=== PATIENT | female | born 1985 | race Caucasian/White ===

== ENCOUNTER 2019-07-09 09:41 | Emergency (ER) | payer MEDICAID ==
[~2019-07-09] VITALS: Ht 165.1 cm; Wt 75.0 kg
[~2019-07-09 09:41] MED LIST: BENZ-38 PO; LEVA15HF4 IH; PRED20TA PO; PSEU-225 PO; ROBCFL PO
== END 2019-07-09 10:43 | disposition home or self-care (01) ==
LOC: ER 09:42 → MERGE 09:42 → ER 10:43
DX: J06.9 Acute upper respiratory infection, unspecified (principal); F17.200 Nicotine dependence, unspecified, uncomplicated
CPT/HCPCS: 99281

== ENCOUNTER 2019-07-12 09:27 | Emergency (ER) | payer MEDICAID ==
[~2019-07-12] VITALS: Ht 165.1 cm; Wt 56.0 kg
[2019-07-12] MEDS ORDERED: ondansetron 4mg rapidly disintigrating tab PO ONE (11:35)
[2019-07-12] MEDS ORDERED: dexamethasone sod phosphate 10mg/ml inj PO STA (11:35)
[2019-07-12] MEDS ORDERED: normal saline 1000ML IV soln IVB ONE (11:45)
--- NOTE | 2019-07-12 13:38 | NUR ---
PT GIVEN SANDWICH BAGS FOR HER AND CHILD.
[2019-07-12 13:40] VITALS: BP 106/47
[2019-07-12 13:46] LABS: URINE AMPHETAMINE SCREEN NEGATIVE (Neg); URINE BARBITUATE SCREEN NEGATIVE (Neg); URINE BENZODIAZEPINES SCREEN NEGATIVE (Neg); URINE CANNABINOID SCREEN NEGATIVE (Neg); URINE COCAINE SCREEN NEGATIVE (Neg); URINE METHADONE SCREEN NEGATIVE (Neg); URINE OPIATE SCREEN NEGATIVE (Neg); URINE PHENCYCLIDINE SCREEN NEGATIVE (Neg)
[2019-07-12] MEDS ORDERED: PENI500T2 PO (14:00)
== END 2019-07-12 14:12 | disposition home or self-care (01) ==
LOC: MERGE 09:27 → ER 09:27
DX: J02.0 Streptococcal pharyngitis (principal); R59.0 Localized enlarged lymph nodes; Z88.0 Allergy status to penicillin
CPT/HCPCS: 80305; 87880; 99283; J1100; J7030

== ENCOUNTER 2019-08-25 14:05 | Emergency (ER) | payer MEDICAID ==
[~2019-08-25] VITALS: Ht 165.1 cm; Wt 56.0 kg
[2019-08-25] MEDS ORDERED: CefTRIAXone 2gm/D5W 50ml 50 ML IV ONE (15:25)
[2019-08-25] MEDS ORDERED: ringers solution, lacted 1,000 ML IV ONE (15:25)
[2019-08-25 15:34] LABS: URINE HCG NEGATIVE (NEG)
[2019-08-25 15:39] LABS: CLARITY,URINE SLIGHTLY CLOUDY (Clear); COLOR,URINE YELLOW (Yellow); GLUCOSE, URINE NEGATIVE (Neg); KETONES,URINE NEGATIVE (Neg); LEUKOCYTE ESTERASE ,URINE LARGE (Neg); NITRITES, URINE NEGATIVE (Neg); OCCULT BLOOD,URINE MODERATE (Neg); PROTEIN,URINE NEGATIVE (Neg); UROBILINOGEN,URINE 0.2 E.U/dL (0.2-1.0)
[2019-08-25 15:44] LABS: UA COLLECTION TYPE CLN CATCH MIDSTREAM
[2019-08-25 15:48] LABS: BACTERIA,URINE 3+ /HPF (Neg); MUCUS STRANDS NONE SEEN /LPF (Neg); SQUAMOUS EPITHELIAL CELL,UR FEW /LPF (FEW); WBC,URINE TNTC /HPF (0-4)
[2019-08-25 15:49] LABS: WBC CLUMPS,URINE MODERATE /HPF (NEGATIVE)
[2019-08-25 16:12] VITALS: BP 125/99
[2019-08-25] MEDS ORDERED: CEPH-572 PO ×2 (16:22→16:27)
== END 2019-08-25 17:01 | disposition home or self-care (01) ==
LOC: ER 14:06
DX: N12 Tubulo-interstitial nephritis, not specified as acute or chronic (principal); F17.200 Nicotine dependence, unspecified, uncomplicated; Z88.6 Allergy status to analgesic agent; Z79.899 Other long term (current) drug therapy; Z79.2 Long term (current) use of antibiotics; Z87.440 Personal history of urinary (tract) infections; Z59.0 Homelessness; Z56.0 Unemployment, unspecified
CPT/HCPCS: 81001; 81025; 87077; 87088; 87186; 96365; 99283; J0696; J7120

== ENCOUNTER 2019-09-21 10:31 | Emergency (ER) | payer MEDICAID ==
[~2019-09-21] VITALS: Ht 165.1 cm; Wt 57.0 kg
[2019-09-21] MEDS ORDERED: acetaminophen 325mg tablet PO ONE (11:15)
[2019-09-21 11:22] LABS: CLARITY,URINE SLIGHTLY CLOUDY (Clear); COLOR,URINE YELLOW (Yellow); GLUCOSE, URINE NEGATIVE (Neg); KETONES,URINE NEGATIVE (Neg); LEUKOCYTE ESTERASE ,URINE TRACE (Neg); NITRITES, URINE NEGATIVE (Neg); OCCULT BLOOD,URINE LARGE (Neg); PROTEIN,URINE TRACE mg/dl (Neg); URINE HCG NEGATIVE (NEG); UROBILINOGEN,URINE 0.2 E.U/dL (0.2-1.0)
[2019-09-21 11:30] LABS: UA COLLECTION TYPE CLN CATCH MIDSTREAM
[2019-09-21 11:32] LABS: BASOPHILS # (AUTO) 0.1 X10'3 (0-0.2); BASOPHILS % (AUTO) 0.7 % (0-1); EOSINOPHILS # (AUTO) 0.3 X10'3 (0-0.9); EOSINOPHILS % (AUTO) 2.9 % (0-6); HEMATOCRIT 38.4 % (35.0-45.0); HEMOGLOBIN 13.3 g/dl (12.0-16.0); LYMPHOCYTES # (AUTO) 1.3 X10'3 (1.1-4.8); LYMPHOCYTES % (AUTO) 15.4 % (21-51); MEAN CORPUSCULAR HEMOGLOBIN 31.2 PG (27.0-31.0); MEAN CORPUSCULAR HGB CONC 34.7 g/dL (33.0-36.5); MEAN CORPUSCULAR VOLUME 90.1 FL (78-98); MEAN PLATELET VOLUME 7.7 FL (7.4-10.4); MONOCYTES # (AUTO) 0.3 X10'3 (0-0.9); NEUTROPHILS # (AUTO) 6.7 X10'3 (1.8-7.7); PLATELET COUNT 349 X10'3 (140-440); RED BLOOD COUNT 4.26 X10'6 (4.20-5.60); RED CELL DISTRIBUTION WIDTH 14.2 % (11.5-14.5); WHITE BLOOD COUNT 8.7 X10'3 (4.5-11.0)
[2019-09-21 11:42] LABS: SQUAMOUS EPITHELIAL CELL,UR MANY /LPF (FEW)
[2019-09-21 11:43] LABS: RBC,URINE TNTC /HPF (0-2)
[2019-09-21 11:44] LABS: ALANINE AMINOTRANSFERASE 13 U/L (12-78); ALBUMIN 3.5 G/DL (3.4-5.0); ALBUMIN/GLOBULIN RATIO 0.9 (1.1-1.5); ALKALINE PHOSPHATASE 78 IU/L (46-116); ANION GAP 9 (8-16); ASPARTATE AMINO TRANSFERASE 12 U/L (10-37); BILIRUBIN,TOTAL 0.3 MG/DL (0.1-1.0); BLOOD UREA NITROGEN 4 MG/DL (7-18); BUN/CREATININE RATIO 6.3 (6.6-38.0); CALCIUM 8.3 MG/DL (8.5-10.1); CHLORIDE 102 MMOL/L (99-107); CREATININE 0.64 MG/DL (0.40-0.90); GLUCOSE 126 MG/DL (70-104); LIPASE 125 U/L (73-393); SODIUM 139 MMOL/L (135-145); TOTAL CARBON DIOXIDE 28.3 MMOL/L (24-32); TOTAL PROTEIN 7.3 G/DL (6.4-8.2); eGFR > 90 ML/MIN
[2019-09-21 11:45] LABS: BACTERIA,URINE 1+ /HPF (Neg); WBC,URINE 0-4 /HPF (0-4)
[2019-09-21] MEDS ORDERED: potassium Cl 20 mEq SR tablet PO STA (12:07)
[2019-09-21 12:13] VITALS: BP 118/70
== END 2019-09-21 12:21 | disposition home or self-care (01) ==
LOC: ER 10:32
DX: M54.6 Pain in thoracic spine (principal); E87.6 Hypokalemia; F17.210 Nicotine dependence, cigarettes, uncomplicated; Z59.0 Homelessness; Z56.0 Unemployment, unspecified; Z88.5 Allergy status to narcotic agent; Z79.899 Other long term (current) drug therapy
CPT/HCPCS: 36415; 80053; 81001; 81025; 83690; 85025; 99283; 99406

== ENCOUNTER 2019-10-09 08:27 | Emergency (ER) | payer MEDICAID ==
[~2019-10-09] VITALS: Ht 165.1 cm; Wt 58.0 kg
[2019-10-09 08:29] VITALS: BP 125/60
== END 2019-10-09 09:46 | disposition home or self-care (01) ==
LOC: ER 08:28
DX: S50.312A Abrasion of left elbow, initial encounter (principal); M25.512 Pain in left shoulder; Z59.0 Homelessness; Z56.0 Unemployment, unspecified; Z88.5 Allergy status to narcotic agent; Z79.899 Other long term (current) drug therapy; W01.0XXA Fall on same level from slipping, tripping and stumbling without subsequent striking against object, initial encounter; Y93.89 Activity, other specified; Y92.89 Other specified places as the place of occurrence of the external cause; Y99.8 Other external cause status
CPT/HCPCS: 73080; 99284

== ENCOUNTER 2019-10-25 16:53 | Emergency (ER) | payer MEDICAID ==
[~2019-10-25] VITALS: Ht 165.1 cm; Wt 58.7 kg
[2019-10-25 17:07] VITALS: BP 112/65
[2019-10-25] MEDS ORDERED: NAPR-56 PO (19:29)
== END 2019-10-25 20:58 | disposition home or self-care (01) ==
LOC: ER 16:57
DX: M94.0 Chondrocostal junction syndrome [Tietze] (principal); R05 Cough; F17.210 Nicotine dependence, cigarettes, uncomplicated; Z59.0 Homelessness; Z56.0 Unemployment, unspecified; Z88.5 Allergy status to narcotic agent; Z79.899 Other long term (current) drug therapy
CPT/HCPCS: 71046; 99283

== ENCOUNTER 2019-11-01 21:10 | Emergency (ER) | payer MEDICAID ==
[~2019-11-01] VITALS: Ht 165.1 cm; Wt 57.8 kg
[~2019-11-01 21:10] MED LIST changes: +NAPR-56 PO
[2019-11-01] MEDS ORDERED: ALBU8.5H8 IH (21:48)
[2019-11-01] MEDS ORDERED: BENZ-16 PO (21:48)
[2019-11-01 22:42] VITALS: BP 121/48
== END 2019-11-01 22:47 | disposition home or self-care (01) ==
LOC: ER 21:10
DX: R05 Cough (principal); F17.200 Nicotine dependence, unspecified, uncomplicated; Z59.0 Homelessness; Z56.0 Unemployment, unspecified; Z88.5 Allergy status to narcotic agent; Z79.899 Other long term (current) drug therapy
CPT/HCPCS: 99283

== ENCOUNTER 2019-11-19 10:46 | Emergency (ER) | payer MEDICAID ==
[~2019-11-19] VITALS: Ht 167.6 cm; Wt 60.0 kg
[~2019-11-19 10:46] MED LIST changes: +ALBU8.5H8 IH; +BENZ-16 PO
[2019-11-19] MEDS ORDERED: ketorolac trometh. 30mg/ml inj. IM ONE (11:20)
[2019-11-19] MEDS ORDERED: normal saline 1000ML IV soln IVB ONE (11:20)
[2019-11-19] MEDS ORDERED: morphine 4 MG/ML inj SYRINge IV ONE (11:25)
[2019-11-19 11:50] LABS: EOSINOPHILS # (AUTO) 0.4 X10'3 (0-0.9)
[2019-11-19 11:52] LABS: BASOPHILS # (AUTO) 0.1 X10'3 (0-0.2); BASOPHILS % (AUTO) 1.6 % (0-1); EOSINOPHILS % (AUTO) 4.1 % (0-6); HEMOGLOBIN 12.8 g/dl (12.0-16.0); LYMPHOCYTES % (AUTO) 22.6 % (21-51); MEAN CORPUSCULAR HEMOGLOBIN 29.3 PG (27.0-31.0); MEAN CORPUSCULAR HGB CONC 33.8 g/dL (33.0-36.5); MEAN CORPUSCULAR VOLUME 86.7 FL (78-98); MEAN PLATELET VOLUME 7.3 FL (7.4-10.4); MONOCYTES # (AUTO) 0.5 X10'3 (0-0.9); MONOCYTES % (AUTO) 5.8 % (2-12); NEUTROPHILS % (AUTO) 65.9 % (42-75); PLATELET COUNT 464 X10'3 (140-440); RED BLOOD COUNT 4.38 X10'6 (4.20-5.60)
[2019-11-19 12:11] LABS: ALANINE AMINOTRANSFERASE 15 U/L (12-78); ALBUMIN 3.7 G/DL (3.4-5.0); ALBUMIN/GLOBULIN RATIO 1.1 (1.1-1.5); ALKALINE PHOSPHATASE 78 IU/L (46-116); ANION GAP 6 (8-16); ASPARTATE AMINO TRANSFERASE 11 U/L (10-37); BILIRUBIN,TOTAL 0.2 MG/DL (0.1-1.0); BLOOD UREA NITROGEN 4 MG/DL (7-18); BUN/CREATININE RATIO 7.4 (6.6-38.0); CALCIUM 8.3 MG/DL (8.5-10.1); CHLORIDE 102 MMOL/L (99-107); CREATININE 0.54 MG/DL (0.40-0.90); GLUCOSE 60 MG/DL (70-104); POTASSIUM 3.3 MMOL/L (3.5-5.1); SODIUM 137 MMOL/L (135-145); TOTAL CARBON DIOXIDE 28.6 MMOL/L (24-32); TOTAL PROTEIN 7.2 G/DL (6.4-8.2); eGFR > 90 ML/MIN
[2019-11-19 12:14] LABS: URINE HCG NEGATIVE (NEG)
[2019-11-19 12:15] LABS: LIPASE 1560 U/L (73-393)
[2019-11-19 12:15] LABS: CLARITY,URINE SLIGHTLY CLOUDY (Clear); COLOR,URINE STRAW (Yellow); GLUCOSE, URINE NEGATIVE (Neg); KETONES,URINE NEGATIVE (Neg); LEUKOCYTE ESTERASE ,URINE NEGATIVE (Neg); NITRITES, URINE NEGATIVE (Neg); OCCULT BLOOD,URINE NEGATIVE (Neg); PH,URINE 5.5 (4.8-8.0); PROTEIN,URINE NEGATIVE (Neg); UROBILINOGEN,URINE 0.2 E.U/dL (0.2-1.0)
[2019-11-19 12:18] LABS: UA COLLECTION TYPE CLN CATCH MIDSTREAM
[2019-11-19 12:20] LABS: SQUAMOUS EPITHELIAL CELL,UR MODERATE /LPF (FEW)
[2019-11-19 12:21] LABS: BACTERIA,URINE FEW /HPF (Neg); RBC,URINE 0-2 /HPF (0-2); WBC,URINE 0-4 /HPF (0-4)
[2019-11-19] MEDS ORDERED: potassium Cl 20 mEq SR tablet PO ONE (12:25)
[2019-11-19 12:39] LABS: CHOL/HDL RATIO 2.8 (0.00-4.99); CHOLESTEROL 150 MG/DL (0-200); HDL CHOLESTEROL 53 MG/DL (35-60); LDL CHOLESTEROL 81 MG/DL (50-100); TRIGLYCERIDES 82 MG/DL (20-135)
[2019-11-19] MEDS ORDERED: proCHLORperazine 10 MG/2 ml inj IV ONE (13:05)
[2019-11-19] MEDS ORDERED: ONDA8TAB13 PO (13:10)
[2019-11-19 13:25] VITALS: BP 108/66
[2019-11-21] MEDS ORDERED: ONDA4TAB12 PO (22:48)
[2019-11-21] MEDS ORDERED: HYDR-3965 PO (22:48)
== END 2019-11-19 13:27 | disposition home or self-care (01) ==
LOC: ER 10:47
DX: K85.90 Acute pancreatitis without necrosis or infection, unspecified (principal); F17.200 Nicotine dependence, unspecified, uncomplicated; Z59.0 Homelessness; Z56.0 Unemployment, unspecified; Z88.5 Allergy status to narcotic agent; Z79.899 Other long term (current) drug therapy
CPT/HCPCS: 36415; 76700; 80053; 80061; 81001; 81025; 83690; 85025; 96372; 96374; 96375; 99284; J0780; J1885; J2270; J7030

== ENCOUNTER 2019-11-29 06:24 | Emergency (ER) | payer MEDICAID ==
[~2019-11-29] VITALS: Ht 165.1 cm; Wt 55.5 kg
[~2019-11-29 06:24] MED LIST changes: +HYDR-3965 PO; -NAPR-56 PO; +ONDA4TAB12 PO; +ONDA8TAB13 PO
[2019-11-29 06:30] VITALS: BP 114/59
[2019-11-29] MEDS ORDERED: CefTRIAXone 250MG IM Kit w/LIDOcaine IM ONE (06:50)
[2019-11-29] MEDS ORDERED: azithromycin 250mg tablet PO ONE (06:50)
[2019-11-29 08:02] LABS: BASOPHILS % (AUTO) 0.5 % (0-1); EOSINOPHILS # (AUTO) 0.3 X10'3 (0-0.9); EOSINOPHILS % (AUTO) 3.7 % (0-6); HEMATOCRIT 39.2 % (35.0-45.0); HEMOGLOBIN 13.1 g/dl (12.0-16.0); LYMPHOCYTES # (AUTO) 1.6 X10'3 (1.1-4.8); LYMPHOCYTES % (AUTO) 19.1 % (21-51); MEAN CORPUSCULAR HEMOGLOBIN 28.8 PG (27.0-31.0); MEAN CORPUSCULAR HGB CONC 33.4 g/dL (33.0-36.5); MEAN CORPUSCULAR VOLUME 86.4 FL (78-98); MEAN PLATELET VOLUME 7.4 FL (7.4-10.4); MONOCYTES # (AUTO) 0.6 X10'3 (0-0.9); MONOCYTES % (AUTO) 6.6 % (2-12); NEUTROPHILS % (AUTO) 70.1 % (42-75); PLATELET COUNT 407 X10'3 (140-440); RED BLOOD COUNT 4.54 X10'6 (4.20-5.60); RED CELL DISTRIBUTION WIDTH 15.9 % (11.5-14.5); WHITE BLOOD COUNT 8.6 X10'3 (4.5-11.0)
[2019-11-29 08:13] LABS: CLARITY,URINE CLEAR (Clear); COLOR,URINE STRAW (Yellow); GLUCOSE, URINE NEGATIVE (Neg); KETONES,URINE NEGATIVE (Neg); LEUKOCYTE ESTERASE ,URINE NEGATIVE (Neg); NITRITES, URINE NEGATIVE (Neg); OCCULT BLOOD,URINE TRACE-INTACT (Neg); PROTEIN,URINE 100 mg/dl (Neg); URINE HCG NEGATIVE (NEG); UROBILINOGEN,URINE 0.2 E.U/dL (0.2-1.0)
[2019-11-29 08:20] LABS: ALANINE AMINOTRANSFERASE 15 U/L (12-78); ALBUMIN 3.5 G/DL (3.4-5.0); ALKALINE PHOSPHATASE 74 IU/L (46-116); ANION GAP 4 (8-16); ASPARTATE AMINO TRANSFERASE 13 U/L (10-37); BILIRUBIN,TOTAL 0.3 MG/DL (0.1-1.0); BLOOD UREA NITROGEN 5 MG/DL (7-18); BUN/CREATININE RATIO 8.6 (6.6-38.0); CALCIUM 8.5 MG/DL (8.5-10.1); CHLORIDE 105 MMOL/L (99-107); CREATININE 0.58 MG/DL (0.40-0.90); GLUCOSE 82 MG/DL (70-104); LIPASE 217 U/L (73-393); POTASSIUM 3.8 MMOL/L (3.5-5.1); SODIUM 139 MMOL/L (135-145); TOTAL CARBON DIOXIDE 29.7 MMOL/L (24-32); eGFR > 90 ML/MIN
[2019-11-29 08:21] LABS: UA COLLECTION TYPE VOIDED
[2019-11-29 08:22] LABS: BACTERIA,URINE FEW /HPF (Neg); MUCUS STRANDS NONE SEEN /LPF (Neg); RBC,URINE 0-2 /HPF (0-2); SQUAMOUS EPITHELIAL CELL,UR FEW /LPF (FEW); WBC,URINE 0-4 /HPF (0-4)
== END 2019-11-29 09:56 | disposition home or self-care (01) ==
LOC: ER 06:24
DX: R10.84 Generalized abdominal pain (principal); R19.7 Diarrhea, unspecified; R11.10 Vomiting, unspecified; Z20.2 Contact with and (suspected) exposure to infections with a predominantly sexual mode of transmission; Z59.0 Homelessness; Z56.0 Unemployment, unspecified; Z88.5 Allergy status to narcotic agent; Z79.899 Other long term (current) drug therapy
CPT/HCPCS: 36415; 80053; 81001; 81025; 83690; 85025; 87491; 87591; 96372; 99283; J0696

== ENCOUNTER 2019-12-13 12:59 | Emergency (ER) | payer MEDICAID ==
[~2019-12-13] VITALS: Ht 165.1 cm; Wt 57.0 kg
[~2019-12-13 12:59] MED LIST changes: -BENZ-16 PO
[2019-12-13 13:43] LABS: CLARITY,URINE CLEAR (Clear); COLOR,URINE STRAW (Yellow); GLUCOSE, URINE NEGATIVE (Neg); KETONES,URINE NEGATIVE (Neg); LEUKOCYTE ESTERASE ,URINE NEGATIVE (Neg); NITRITES, URINE NEGATIVE (Neg); OCCULT BLOOD,URINE NEGATIVE (Neg); PH,URINE 5.5 (4.8-8.0); PROTEIN,URINE NEGATIVE (Neg); UROBILINOGEN,URINE 0.2 E.U/dL (0.2-1.0)
[2019-12-13 13:44] LABS: UA COLLECTION TYPE CLN CATCH MIDSTREAM; URINE HCG NEGATIVE (NEG)
[2019-12-13 13:45] LABS: BASOPHILS # (AUTO) 0.1 X10'3 (0-0.2); BASOPHILS % (AUTO) 0.6 % (0-1); EOSINOPHILS # (AUTO) 0.3 X10'3 (0-0.9); EOSINOPHILS % (AUTO) 2.6 % (0-6); HEMATOCRIT 40.9 % (35.0-45.0); HEMOGLOBIN 13.6 g/dl (12.0-16.0); LYMPHOCYTES # (AUTO) 2.4 X10'3 (1.1-4.8); LYMPHOCYTES % (AUTO) 21.2 % (21-51); MEAN CORPUSCULAR HEMOGLOBIN 28.8 PG (27.0-31.0); MEAN CORPUSCULAR HGB CONC 33.1 g/dL (33.0-36.5); MEAN CORPUSCULAR VOLUME 86.8 FL (78-98); MEAN PLATELET VOLUME 7.4 FL (7.4-10.4); MONOCYTES # (AUTO) 0.5 X10'3 (0-0.9); MONOCYTES % (AUTO) 3.9 % (2-12); NEUTROPHILS # (AUTO) 8.2 X10'3 (1.8-7.7); NEUTROPHILS % (AUTO) 71.7 % (42-75); PLATELET COUNT 395 X10'3 (140-440); RED BLOOD COUNT 4.71 X10'6 (4.20-5.60); RED CELL DISTRIBUTION WIDTH 16.8 % (11.5-14.5); WHITE BLOOD COUNT 11.4 X10'3 (4.5-11.0)
[2019-12-13] MEDS ORDERED: HYDROcodone/acetaminophen 5mg/325mg tablet PO ONE (13:50)
[2019-12-13] MEDS ORDERED: ondansetron 4mg rapidly disintigrating tab PO ONE (13:50)
[2019-12-13 14:02] LABS: ALANINE AMINOTRANSFERASE 13 U/L (12-78); ALBUMIN 3.8 G/DL (3.4-5.0); ALBUMIN/GLOBULIN RATIO 1.1 (1.1-1.5); ALKALINE PHOSPHATASE 70 IU/L (46-116); AMYLASE 42 U/L (25-115); ANION GAP 9 (8-16); ASPARTATE AMINO TRANSFERASE 14 U/L (10-37); BILIRUBIN,TOTAL 0.3 MG/DL (0.1-1.0); BLOOD UREA NITROGEN 9 MG/DL (7-18); BUN/CREATININE RATIO 13.8 (6.6-38.0); CALCIUM 8.7 MG/DL (8.5-10.1); CHLORIDE 101 MMOL/L (99-107); CREATININE 0.65 MG/DL (0.40-0.90); GLUCOSE 81 MG/DL (70-104); LIPASE 145 U/L (73-393); POTASSIUM 3.4 MMOL/L (3.5-5.1); SODIUM 137 MMOL/L (135-145); TOTAL CARBON DIOXIDE 27.4 MMOL/L (24-32); TOTAL PROTEIN 7.3 G/DL (6.4-8.2); eGFR > 90 ML/MIN
[2019-12-13 14:38] LABS: HCG SERUM QL NEGATIVE
[2019-12-13 15:35] VITALS: BP 112/48
[2019-12-14] MEDS ORDERED: IBUP-1985 PO (22:09)
== END 2019-12-13 15:40 | disposition home or self-care (01) ==
LOC: ER 12:59
DX: N83.201 Unspecified ovarian cyst, right side (principal); Z59.0 Homelessness; Z56.0 Unemployment, unspecified; Z88.0 Allergy status to penicillin; Z79.899 Other long term (current) drug therapy
CPT/HCPCS: 36415; 74176; 76830; 76856; 80053; 81003; 81025; 82150; 83690; 84703; 85025; 99285

== ENCOUNTER 2019-12-14 21:34 | Emergency (ER) | payer MEDICAID ==
[~2019-12-14] VITALS: Ht 165.1 cm; Wt 56.0 kg
[2019-12-14] MEDS ORDERED: ibuprofen tablet 400 MG TABLET PO ONE (22:00)
[2019-12-14] MEDS ORDERED: IBUP-1985 PO (22:09)
[2019-12-14 22:14] VITALS: BP 121/66
== END 2019-12-14 22:15 | disposition home or self-care (01) ==
LOC: ER 21:36
DX: R10.30 Lower abdominal pain, unspecified (principal); Z59.0 Homelessness; Z56.0 Unemployment, unspecified; Z87.440 Personal history of urinary (tract) infections; Z79.899 Other long term (current) drug therapy; Z88.5 Allergy status to narcotic agent
CPT/HCPCS: 99282

== ENCOUNTER 2019-12-24 23:59 | Emergency (ER) | payer MEDICAID ==
[~2019-12-24] VITALS: Ht 165.1 cm; Wt 56.8 kg
[~2019-12-24 23:59] MED LIST changes: -HYDR-3965 PO; +IBUP-1985 PO
[2019-12-25] MEDS ORDERED: ketorolac tromethamine 15mg/ml inj. IM ONE (00:55)
[2019-12-25 01:25] VITALS: BP 126/85
== END 2019-12-25 01:26 | disposition home or self-care (01) ==
LOC: ER 12-25
DX: G89.29 Other chronic pain (principal); M25.551 Pain in right hip; Z59.0 Homelessness; Z56.0 Unemployment, unspecified; Z88.5 Allergy status to narcotic agent; Z79.899 Other long term (current) drug therapy
CPT/HCPCS: 96372; 99283; J1885

== ENCOUNTER 2019-12-28 17:53 | Emergency (ER) | payer MEDICAID ==
[~2019-12-28] VITALS: Ht 165.1 cm; Wt 58.0 kg
[2019-12-28 18:31] LABS: URINE HCG NEGATIVE (NEG)
[2019-12-28 18:34] LABS: CLARITY,URINE CLEAR (Clear); COLOR,URINE STRAW (Yellow); GLUCOSE, URINE NEGATIVE (Neg); KETONES,URINE NEGATIVE (Neg); LEUKOCYTE ESTERASE ,URINE TRACE (Neg); NITRITES, URINE NEGATIVE (Neg); OCCULT BLOOD,URINE SMALL (Neg); PROTEIN,URINE NEGATIVE (Neg); UROBILINOGEN,URINE 0.2 E.U/dL (0.2-1.0)
[2019-12-28 18:35] LABS: UA COLLECTION TYPE CLN CATCH MIDSTREAM
[2019-12-28 18:47] LABS: BACTERIA,URINE NONE SEEN /HPF (Neg); RBC,URINE NONE SEEN /HPF (0-2); SQUAMOUS EPITHELIAL CELL,UR FEW /LPF (FEW); WBC,URINE 0-4 /HPF (0-4)
[2019-12-28 18:58] LABS: BASOPHILS # (AUTO) 0.1 X10'3 (0-0.2); BASOPHILS % (AUTO) 0.7 % (0-1); EOSINOPHILS # (AUTO) 0.3 X10'3 (0-0.9); EOSINOPHILS % (AUTO) 3.2 % (0-6); HEMATOCRIT 36.9 % (35.0-45.0); HEMOGLOBIN 12.5 g/dl (12.0-16.0); LYMPHOCYTES # (AUTO) 2.5 X10'3 (1.1-4.8); LYMPHOCYTES % (AUTO) 27.8 % (21-51); MEAN CORPUSCULAR HEMOGLOBIN 29.6 PG (27.0-31.0); MEAN CORPUSCULAR HGB CONC 33.8 g/dL (33.0-36.5); MEAN CORPUSCULAR VOLUME 87.7 FL (78-98); MEAN PLATELET VOLUME 7.7 FL (7.4-10.4); MONOCYTES # (AUTO) 0.4 X10'3 (0-0.9); MONOCYTES % (AUTO) 4.3 % (2-12); NEUTROPHILS # (AUTO) 5.7 X10'3 (1.8-7.7); PLATELET COUNT 419 X10'3 (140-440); RED CELL DISTRIBUTION WIDTH 16.8 % (11.5-14.5)
[2019-12-28 19:11] LABS: ALANINE AMINOTRANSFERASE 10 U/L (12-78); ALBUMIN 3.5 G/DL (3.4-5.0); ALKALINE PHOSPHATASE 69 IU/L (46-116); ANION GAP 6 (8-16); ASPARTATE AMINO TRANSFERASE 13 U/L (10-37); BILIRUBIN,TOTAL 0.2 MG/DL (0.1-1.0); BLOOD UREA NITROGEN 12 MG/DL (7-18); BUN/CREATININE RATIO 15.6 (6.6-38.0); CALCIUM 8.6 MG/DL (8.5-10.1); CHLORIDE 103 MMOL/L (99-107); CREATININE 0.77 MG/DL (0.40-0.90); GLUCOSE 59 MG/DL (70-104); LIPASE 178 U/L (73-393); POTASSIUM 3.4 MMOL/L (3.5-5.1); SODIUM 139 MMOL/L (135-145); TOTAL CARBON DIOXIDE 29.7 MMOL/L (24-32); eGFR 85 ML/MIN
[2019-12-28] MEDS ORDERED: ketorolac trometh. 30mg/ml inj. IV ONE (20:35)
[2019-12-28] MEDS ORDERED: normal saline 1000ML IV soln IVB ONE (20:35)
[2019-12-28] MEDS ORDERED: ondansetron/PF 4mg/2ml inj IV ONE (20:35)
[2019-12-28] MEDS ORDERED: LIDOcaine 2% 10ml TOPICAL JELLY (Urojet) TP ONE (21:15)
[2019-12-28 21:59] VITALS: BP 112/52
== END 2019-12-28 22:10 | disposition left against medical advice (07) ==
LOC: ER 17:54
DX: N32.0 Bladder-neck obstruction (principal); R55 Syncope and collapse; Z59.0 Homelessness; Z56.0 Unemployment, unspecified; Z88.5 Allergy status to narcotic agent; Z79.899 Other long term (current) drug therapy
CPT/HCPCS: 36415; 74176; 80053; 81001; 81025; 83690; 85025; 87088; 96374; 96375; 99284; J1885; J2405; J7030

== ENCOUNTER 2020-06-08 14:46 | Emergency (ER) | payer MEDICAID ==
[~2020-06-08] VITALS: Ht 165.1 cm; Wt 55.9 kg
[2020-06-08 15:15] LABS: BASOPHILS # (AUTO) 0.1 X10'3 (0-0.2); BASOPHILS % (AUTO) 0.9 % (0-1); EOSINOPHILS # (AUTO) 0.2 X10'3 (0-0.9); EOSINOPHILS % (AUTO) 2.2 % (0-6); HEMATOCRIT 38.6 % (35.0-45.0); HEMOGLOBIN 13.1 g/dl (12.0-16.0); LYMPHOCYTES # (AUTO) 2.1 X10'3 (1.1-4.8); LYMPHOCYTES % (AUTO) 19.2 % (21-51); MEAN CORPUSCULAR HEMOGLOBIN 30.3 PG (27.0-31.0); MEAN CORPUSCULAR HGB CONC 34.1 g/dL (33.0-36.5); MEAN CORPUSCULAR VOLUME 88.9 FL (78-98); MEAN PLATELET VOLUME 6.9 FL (7.4-10.4); MONOCYTES # (AUTO) 0.5 X10'3 (0-0.9); MONOCYTES % (AUTO) 4.5 % (2-12); NEUTROPHILS # (AUTO) 7.9 X10'3 (1.8-7.7); NEUTROPHILS % (AUTO) 73.2 % (42-75); PLATELET COUNT 425 X10'3 (140-440); RED BLOOD COUNT 4.34 X10'6 (4.20-5.60); RED CELL DISTRIBUTION WIDTH 15.5 % (11.5-14.5); WHITE BLOOD COUNT 10.7 X10'3 (4.5-11.0)
[2020-06-08 15:31] LABS: ALANINE AMINOTRANSFERASE 12 U/L (12-78); ALBUMIN 3.4 G/DL (3.4-5.0); ALBUMIN/GLOBULIN RATIO 0.9 (1.1-1.5); ALKALINE PHOSPHATASE 86 IU/L (46-116); ANION GAP 7 (8-16); ASPARTATE AMINO TRANSFERASE 24 U/L (10-37); BILIRUBIN,TOTAL 0.4 MG/DL (0.1-1.0); BLOOD UREA NITROGEN 5 MG/DL (7-18); BUN/CREATININE RATIO 8.5 (6.6-38.0); CALCIUM 8.5 MG/DL (8.5-10.1); CHLORIDE 100 MMOL/L (99-107); CREATININE 0.59 MG/DL (0.40-0.90); GLUCOSE 93 MG/DL (70-104); SODIUM 138 MMOL/L (135-145); TOTAL CARBON DIOXIDE 31.1 MMOL/L (24-32); TOTAL PROTEIN 7.2 G/DL (6.4-8.2); eGFR > 90 ML/MIN
[2020-06-08 15:35] LABS: POTASSIUM 2.8 MMOL/L (3.5-5.1)
[2020-06-08] MEDS ORDERED: HYDROcodone/acetaminophen 5mg/325mg tablet PO ONE (15:55)
[2020-06-08] MEDS ORDERED: potassium Cl 20 mEq SR tablet PO STA (15:55)
[2020-06-08] MEDS ORDERED: ondansetron 4mg rapidly disintigrating tab PO ONE (15:55)
[2020-06-08] MEDS ORDERED: ketorolac trometh inj. 60 MG/2 ML VIAL IM ONE (16:00)
[2020-06-08 16:08] VITALS: BP 103/60
[2020-06-08 16:39] LABS: CLARITY,URINE CLEAR (Clear); COLOR,URINE STRAW (Yellow); GLUCOSE, URINE NEGATIVE (Neg); KETONES,URINE NEGATIVE (Neg); LEUKOCYTE ESTERASE ,URINE NEGATIVE (Neg); NITRITES, URINE NEGATIVE (Neg); OCCULT BLOOD,URINE TRACE-INTACT (Neg); PH,URINE 6.5 (4.8-8.0); PROTEIN,URINE NEGATIVE (Neg); UROBILINOGEN,URINE 0.2 E.U/dL (0.2-1.0)
[2020-06-08 16:44] LABS: UA COLLECTION TYPE CLN CATCH MIDSTREAM
[2020-06-08 16:45] LABS: BACTERIA,URINE FEW /HPF (Neg); RBC,URINE 0-2 /HPF (0-2); SQUAMOUS EPITHELIAL CELL,UR FEW /LPF (FEW); WBC,URINE 0-4 /HPF (0-4)
[2020-06-08 16:57] LABS: URINE AMPHETAMINE SCREEN NEGATIVE (Neg); URINE BARBITUATE SCREEN NEGATIVE (Neg); URINE BENZODIAZEPINES SCREEN NEGATIVE (Neg); URINE CANNABINOID SCREEN NEGATIVE (Neg); URINE COCAINE SCREEN NEGATIVE (Neg); URINE METHADONE SCREEN NEGATIVE (Neg); URINE OPIATE SCREEN NEGATIVE (Neg); URINE PHENCYCLIDINE SCREEN NEGATIVE (Neg)
[2020-06-08] MEDS ORDERED: ACET-2615 PO (17:32)
[2020-06-08] MEDS ORDERED: MELO-100 PO (17:32)
[2020-06-08] MEDS ORDERED: POTA20TA19 PO (17:32)
== END 2020-06-08 17:44 | disposition home or self-care (01) ==
LOC: ER 14:47
DX: E87.6 Hypokalemia (principal); R10.31 Right lower quadrant pain; Z59.0 Homelessness; Z56.0 Unemployment, unspecified; Z88.5 Allergy status to narcotic agent; Z79.899 Other long term (current) drug therapy
CPT/HCPCS: 36415; 80053; 80305; 81001; 85025; 93005; 96372; 99284; J1885

== ENCOUNTER 2020-07-29 06:44 | Emergency (ER) | payer MEDICAID ==
[~2020-07-29] VITALS: Ht 165.1 cm; Wt 56.8 kg
[~2020-07-29 06:44] MED LIST changes: +MELO-100 PO
[2020-07-29 06:49] VITALS: BP 110/53
[2020-07-29] MEDS ORDERED: AMOX500C2 PO (07:00)
== END 2020-07-29 07:11 | disposition home or self-care (01) ==
LOC: ER 06:45
DX: H66.91 Otitis media, unspecified, right ear (principal); R09.89 Other specified symptoms and signs involving the circulatory and respiratory systems; Z59.0 Homelessness; Z56.0 Unemployment, unspecified; Z88.5 Allergy status to narcotic agent; Z79.899 Other long term (current) drug therapy
CPT/HCPCS: 99283

== ENCOUNTER 2020-10-13 13:15 | Emergency (ER) | payer MEDICAID ==
[~2020-10-13] VITALS: Ht 165.1 cm; Wt 60.0 kg
[2020-10-13 13:37] VITALS: BP 121/71
--- NOTE | 2020-10-13 15:45 | NUR ---
Attempted to call patient back for the third time and not in lobby. Called patient at listed phone number not able to reach patient. Dr. Donaldson aware of LWOB.
== END 2020-10-13 15:50 | disposition left against medical advice (07) ==
LOC: ER 13:16
DX: R10.9 Unspecified abdominal pain (principal); Z53.21 Procedure and treatment not carried out due to patient leaving prior to being seen by health care provider